=== PATIENT | male | born 1955 | race African-American/Black ===

== ENCOUNTER 2017-11-15 20:54 | Emergency (ER) | payer BC | END 2017-11-15 21:39 | disposition home or self-care (01) | LOC: ER 20:54 | DX: R09.81 Nasal congestion (principal); R05 Cough; R49.0 Dysphonia; R50.9 Fever, unspecified; M79.1 Myalgia; I10 Essential (primary) hypertension | CPT/HCPCS: 99283 ==

== ENCOUNTER → 2018-01-23 | Outpatient (CLI) | payer BC ==
[2018-01-23] MEDS: REGADENOSON 0.4 MG/5 ML DISP.SYRIN. IV (10:46)
== END | disposition home or self-care (01) ==
LOC: NM 08:13
DX: R06.09 Other forms of dyspnea (principal); I10 Essential (primary) hypertension; I51.7 Cardiomegaly; E66.9 Obesity, unspecified
CPT/HCPCS: 78452; 93017; 93306; 96374; 96375; 96376; A9500; J2785